=== PATIENT | female | born 1960 | race Two or more races ===

== ENCOUNTER 2022-08-20 08:40 | Emergency (ER) | payer OTHER ==
[~2022-08-20] VITALS: Ht 154.9 cm; Wt 68.0 kg
[2022-08-20] MEDS ORDERED: MACRODANTIN100 M1 PO (14:17)
== END 2022-08-20 14:40 ==
LOC: ER 08:40
DX: N39.0 Urinary tract infection, site not specified (principal); Z91.041 Radiographic dye allergy status; K21.9 Gastro-esophageal reflux disease without esophagitis; M35.3 Polymyalgia rheumatica; M81.0 Age-related osteoporosis without current pathological fracture